=== PATIENT | female | born 1950 | race African-American/Black ===

== ENCOUNTER → 2017-08-02 | Outpatient (CLI) | payer OTHER | END | disposition home or self-care (01) | LOC: MI 12:53 | PROC: BR30ZZZ Magnetic Resonance Imaging (MRI) of Cervical Spine (ICD-10-PCS; principal; 2017-08-02) | DX: M54.12 Radiculopathy, cervical region (principal) ==

== ENCOUNTER → 2017-10-28 | Outpatient (CLI) | payer OTHER | END | disposition home or self-care (01) | LOC: MI 10:52 | PROC: BR30YZZ Magnetic Resonance Imaging (MRI) of Cervical Spine using Other Contrast (ICD-10-PCS; principal; 2017-10-28) | DX: G95.0 Syringomyelia and syringobulbia (principal) ==

== ENCOUNTER → 2018-04-21 | Outpatient (CLI) | payer OTHER, MEDICARE | END | disposition home or self-care (01) | LOC: RD 12:49 | DX: M25.551 Pain in right hip (principal) ==

== ENCOUNTER → 2018-07-05 | Outpatient (CLI) | payer OTHER, MEDICARE | END | disposition home or self-care (01) | LOC: MI 06-29 18:30 | PROC: BR39ZZZ Magnetic Resonance Imaging (MRI) of Lumbar Spine (ICD-10-PCS; principal; 2018-07-05) | DX: M48.061 Spinal stenosis, lumbar region without neurogenic claudication (principal) ==